=== PATIENT | female | born 1980 | race Caucasian/White ===

== ENCOUNTER 2018-08-09 16:49 | Emergency (ER) | payer OTHER ==
[~2018-08-09] VITALS: Ht 170.2 cm; Wt 67.1 kg
[~2018-08-09 16:49] MED LIST: CIPROFLOXACIN500 M1 PO; CLEOCIN HCL300 MG PO; DOXYCYCLINE 10100 M2 PO; FLAGYL 250 MG250 MG PO; HYDROCODON-ACE1 EAC7 PO; HYDROXYZINE HCL10 M1 PO; LEVAQUIN 500 M500 M1 PO; LEVOTHYROXINE25 MCG PO; MONONESSA1 EACH PO; NORCO 5-325 TA1 EACH PO; PREDNISONE 20 M20 MG PO; PREDNISONE 5 MG5 MG; SYNTHROID150 MCG PO; YAZ 28 TABLET1 EACH
[2018-08-09] MEDS ORDERED: LISINOPRIL5 MG PO (17:08)
[2018-08-09] MEDS ORDERED: YAZ 28 TABLET1 EACH PO (17:08)
[2018-08-09 17:15] LABS: URINE BILIRUBIN NEGATIVE (Negative); URINE BLOOD TRACE (Negative); URINE CLARITY CLEAR; URINE COLOR YELLOW; URINE GLUCOSE-RANDOM* NEGATIVE (Negative); URINE KETONES NEGATIVE (Negative); URINE LEUKOCYTES-REFLEX NEGATIVE (Negative); URINE NITRITE-REFLEX NEGATIVE (Negative); URINE PROTEIN (DIPSTICK) NEGATIVE (Negative); URINE SPECIFIC GRAVITY 1.015 (1.005-1.035); URINE UROBILINOGEN 0.2 E.U./dl (0.2-1.0)
[2018-08-09 17:28] LABS: HEMATOCRIT 43.1 % (37.0-47.0); MCH 32.8 pg (26.0-34.0); MCHC 34.8 g/dL (28.0-37.0); MCV 94.3 fL (80.0-100.0); PLATELET COUNT 363 thou/uL (150-400); RBC 4.57 mil/uL (4.20-5.00)
[2018-08-09 17:38] LABS: CALCIUM 9.6 mg/dL (8.5-10.1); POTASSIUM 4.1 mmol/L (3.5-5.1)
[2018-08-09 17:44] LABS: ALBUMIN 3.6 g/dL (3.4-5.0); TOTAL BILIRUBIN 0.8 mg/dL (<0.1-1.0); TOTAL PROTEIN 7.8 g/dL (6.4-8.2)
[2018-08-09 18:06] LABS: ABSOLUTE NEUTROPHILS 13.9 thou/uL (1.4-8.2)
[2018-08-09 18:07] LABS: ANISOCYTOSIS 1+; POLYCHROMASIA OCCASIONAL
[2018-08-09] MEDS ORDERED: FLAGYL500 MG PO (18:54)
[2018-08-09] MEDS ORDERED: NORCO 5-325 TA1 EACH PO (18:54)
[2018-08-09] MEDS ORDERED: BENTYL 20 MG TA20 M1 PO (18:54)
[2018-08-09] MEDS ORDERED: CIPROFLOXACIN500 M1 PO (18:54)
== END 2018-08-09 19:08 | disposition home or self-care (01) ==
LOC: ER 16:49
PROVIDERS: Emergency Medicine
DX: K52.9 Noninfective gastroenteritis and colitis, unspecified (principal); R11.2 Nausea with vomiting, unspecified; I10 Essential (primary) hypertension; M32.9 Systemic lupus erythematosus, unspecified; Z88.0 Allergy status to penicillin

== ENCOUNTER 2018-11-15 10:16 | Emergency (ER) | payer OTHER ==
[~2018-11-15] VITALS: Ht 170.2 cm; Wt 64.9 kg
[~2018-11-15 10:16] MED LIST changes: +BENTYL 20 MG TA20 M1 PO; +FLAGYL500 MG PO; +LISINOPRIL5 MG PO; +YAZ 28 TABLET1 EACH PO
[2018-11-15 11:05] LABS: ABSOLUTE NEUTROPHILS 7.4 thou/uL (1.4-8.2); BASOPHILS 0.7 % (0.0-2.0); EOSINOPHILS 1.7 % (0.0-3.0); HEMATOCRIT 41.8 % (37.0-47.0); HEMOGLOBIN 14.5 gm/dL (12.0-15.0); LYMPHOCYTES 22.6 % (24.0-44.0); MCH 33.4 pg (26.0-34.0); MCHC 34.7 g/dL (28.0-37.0); MCV 96.2 fL (80.0-100.0); MONOCYTES 7.1 % (1.0-8.0); PLATELET COUNT 343 thou/uL (150-400); POLYS 67.9 % (36.0-66.0); RBC 4.34 mil/uL (4.20-5.00); RDW 11.6 % (10.5-14.5); WBC 10.9 thou/uL (4.0-11.0)
[2018-11-15 11:16] LABS: CALCIUM 9.2 mg/dL (8.5-10.1); POTASSIUM 3.9 mmol/L (3.5-5.1)
[2018-11-15 11:21] LABS: ALBUMIN 3.8 g/dL (3.4-5.0); TOTAL BILIRUBIN 0.4 mg/dL (<0.1-1.0)
[2018-11-15 11:22] LABS: URINE BILIRUBIN NEGATIVE (Negative); URINE BLOOD NEGATIVE (Negative); URINE CLARITY CLEAR; URINE COLOR YELLOW; URINE GLUCOSE-RANDOM* NEGATIVE (Negative); URINE KETONES NEGATIVE (Negative); URINE LEUKOCYTES-REFLEX NEGATIVE (Negative); URINE NITRITE-REFLEX NEGATIVE (Negative); URINE PROTEIN (DIPSTICK) NEGATIVE (Negative); URINE UROBILINOGEN 0.2 E.U./dl (0.2-1.0)
[2018-11-15] MEDS ORDERED: BENTYL 10 MG CA10 M1 PO (12:25)
[2018-11-15] MEDS ORDERED: FLAGYL500 M1 PO (12:25)
[2018-11-15] MEDS ORDERED: CIPRO500 MG PO (12:25)
[2018-11-15] MEDS ORDERED: NORCO 5-325 TA1 EACH PO (12:25)
[2018-11-15 13:29] VITALS: BP 123/67
== END 2018-11-15 13:32 | disposition home or self-care (01) ==
LOC: ER 10:16
PROVIDERS: Physician Assistant
DX: K52.9 Noninfective gastroenteritis and colitis, unspecified (principal); I10 Essential (primary) hypertension; Z88.0 Allergy status to penicillin

== ENCOUNTER → 2018-12-10 | Outpatient (CLI) | payer OTHER ==
[~2018-12-10] MED LIST changes: +BENTYL 10 MG CA10 M1 PO; +CIPRO500 MG PO; +FLAGYL500 M1 PO
[2018-12-10 09:20] LABS: ABSOLUTE NEUTROPHILS 6.5 thou/uL (1.4-8.2); BASOPHILS 0.6 % (0.0-2.0); EOSINOPHILS 2.3 % (0.0-3.0); HEMATOCRIT 38.6 % (37.0-47.0); HEMOGLOBIN 13.1 gm/dL (12.0-15.0); MCH 32.7 pg (26.0-34.0); MCV 96.2 fL (80.0-100.0); MONOCYTES 6.4 % (1.0-8.0); PLATELET COUNT 291 thou/uL (150-400); POLYS 66.7 % (36.0-66.0); RBC 4.01 mil/uL (4.20-5.00); RDW 11.8 % (10.5-14.5); WBC 9.8 thou/uL (4.0-11.0)
[2018-12-10 09:39] LABS: ALBUMIN 3.7 g/dL (3.4-5.0); ANION GAP 10 mmol/L (7-16); BUN 9 mg/dL (7-18); CHLORIDE 104 mmol/L (98-107); CO2 25 mmol/L (21-32); CREATININE 0.9 mg/dL (0.6-1.0); GLUCOSE 113 mg/dL (74-106); POTASSIUM 4.2 mmol/L (3.5-5.1); SGOT 33 U/L (15-37); SGPT 22 U/L (30-65); SODIUM 139 mmol/L (136-145); TOTAL BILIRUBIN 0.3 mg/dL (<0.1-1.0); TOTAL PROTEIN 7.5 g/dL (6.4-8.2)
== END ==
LOC: RAD 08:58
PROVIDERS: Specialist
DX: K52.9 Noninfective gastroenteritis and colitis, unspecified (principal); R11.2 Nausea with vomiting, unspecified; R93.5 Abnormal findings on diagnostic imaging of other abdominal regions, including retroperitoneum